=== PATIENT | female | born 1995 | race American Indian/Alaskan Native ===

== ENCOUNTER 2019-05-02 13:13 | Outpatient (CLI) | payer OTHER | END 2019-05-02 14:06 | disposition home or self-care (01) | LOC: NST 13:13 | DX: Z34.82 Encounter for supervision of other normal pregnancy, second trimester (principal) ==

== ENCOUNTER 2019-08-07 07:30 | Inpatient (IN) | payer OTHER ==
[~2019-08-07] VITALS: Ht 162.6 cm; Wt 83.0 kg
[2019-08-18] MEDS ORDERED: LEVO-T200 MCG PO (09:22)
[2019-08-18] MEDS ORDERED: PRENATAL TABLE1 EACH PO (10:14)
== END 2019-08-20 12:54 | disposition home or self-care (01) | DRG 807 ==
LOC: OB/GYN 07:30 → LDR 08-08 07:30 → OB/GYN 08-18 14:56
PROVIDERS: ADMIT Obstetrics & Gynecology
PROC: 10E0XZZ Delivery of Products of Conception, External Approach (ICD-10-PCS; principal; 2019-08-18)
PROC: 0KQM0ZZ Repair Perineum Muscle, Open Approach (ICD-10-PCS; 2019-08-18)
PROC: 4A1HXFZ Monitoring of Products of Conception, Cardiac Rhythm, External Approach (ICD-10-PCS; 2019-08-18)
PROC: 3E033VJ Introduction of Other Hormone into Peripheral Vein, Percutaneous Approach (ICD-10-PCS; 2019-08-18)
DX: O70.1 Second degree perineal laceration during delivery (principal); Z37.0 Single live birth; Z3A.39 39 weeks gestation of pregnancy

== ENCOUNTER → 2019-08-17 | Outpatient (CLI) | payer OTHER ==
[~2019-08-17] MED LIST: LEVO-T200 MCG PO; PRENATAL TABLE1 EACH PO
== END | disposition home or self-care (01) ==
LOC: NST 20:58
DX: Z34.83 Encounter for supervision of other normal pregnancy, third trimester (principal)